=== PATIENT | male | born 1965 | race Caucasian/White ===

== ENCOUNTER 2017-06-01 13:23 | Emergency (ER) | payer BC ==
[2017-06-01 15:07] LABS: ABSOLUTE BASOPHILS # (AUTO) 0.1 10^3/uL (0.0-0.2); ABSOLUTE EOSINOPHILS # (AUTO) 0.1 10^3/uL (0.0-0.6); ABSOLUTE LYMPHOCYTES (AUTO) 1.3 10^3/uL (0.5-4.7); ABSOLUTE MONOCYTES (AUTO) 0.5 10^3/uL (0.1-1.4); ABSOLUTE NEUT (AUTO) 2.8 10^3/uL (1.7-8.2); BASOPHILS % (AUTO) 1.1 % (0-2); EOSINOPHILS % (AUTO) 2.4 % (0-6); HEMATOCRIT 43.3 % (37.9-51.0); HEMOGLOBIN 15.5 g/dL (13.5-17.0); MEAN CORPUSCULAR HEMOGLOBIN 32.9 pg (27.0-33.4); MEAN CORPUSCULAR HGB CONC 35.8 g/dL (32.0-36.0); MEAN CORPUSCULAR VOLUME 92 fl (80-97); MONOCYTES % (AUTO) 9.6 % (3-13); PLATELET COUNT 262 10^3/uL (150-450); RED BLOOD COUNT 4.71 10^6/uL (4.35-5.55); RED CELL DISTRIBUTION WIDTH 13.1 % (11.5-14.0); SEGMENTED NEUTROPHILS % (AUTO) 59.9 % (42-78); TOTAL CELLS COUNTED % (AUTO) 100 %; WHITE BLOOD COUNT 4.7 10^3/uL (4.0-10.5)
--- NOTE | 2017-06-01 15:11 | RADIOLOGY REPORT (SQ) ---
EXAM DESCRIPTION: CHEST 2 VIEWS COMPLETED DATE/TIME: 06/01/2017 2:57 pm REASON FOR STUDY: SOB COMPARISON: None. EXAM PARAMETERS: NUMBER OF VIEWS: two views TECHNIQUE: Digital Frontal and Lateral radiographic views of the chest acquired. RADIATION DOSE: NA LIMITATIONS: none FINDINGS: LUNGS AND PLEURA: Linear scarring or atelectasis in the left lower lobe. No effusions. MEDIASTINUM AND HILAR STRUCTURES: No masses or contour abnormalities. HEART AND VASCULAR STRUCTURES: Heart normal size. No evidence for failure. BONES: No acute findings. HARDWARE: None in the chest. OTHER: No other significant finding. IMPRESSION: Left lower lobe atelectasis. TECHNICAL DOCUMENTATION: JOB ID: [id number] [employer]- All Rights Reserved Reading location - IP/workstation name: [email or web address]
[2017-06-01] MEDS ORDERED: IPRATROPIUM/ALBUTEROL 0.5-2.5 MG/3 ML AMPUL NEB ONE (16:13)
[2017-06-01] MEDS ORDERED: METHYLPREDNISOLONE INJ 125 MG/2 ML SDV IV ONE (16:13)
--- NOTE | 2017-06-01 16:15 | ER Document Report ---
ED Respiratory Problem - General Chief Complaint: Breathing Difficulty Stated Complaint: DIFFICULTY BREATHING Time Seen by Provider: 06/01/17 13:59 Mode of Arrival: Ambulatory Information source: Patient Notes: Patient presents with a 5 day history of cough with difficulty breathing. Patient states he has had a cough since January of last year but it seems to have worsened over the past 5 days. Patient does work on [id number] and frequently flies out of state. Patient reports occasionally productive cough with bilateral rib pain. Patient denies any nausea vomiting or fever. TRAVEL OUTSIDE OF THE [place] IN LAST 30 DAYS: No - HPI Patient complains to provider of: Cough, Short of breath. No: Chest pain Onset: Other - 5 days Duration: Worse/persistent Pain Level: 1 Context: Recent long distance trvl. denies: Hx asthma, Smoker Cough: Nonproductive Associated symptoms: Cough, Short of breath, Wheezing. denies: Bloody cough, Fever, Headache Similar symptoms previously: No Recently seen / treated by doctor: No - Related Data Allergies/Adverse Reactions: acetaminophen [From Tylenol] Allergy (Verified 06/01/17 13:31) Sulfa (Sulfonamide Antibiotics) Allergy (Verified 06/01/17 13:31) Home Medications: Losartan Past Medical History - General Information source: Patient - Social History Smoking Status: Never Smoker Chew tobacco use (# tins/day): No Frequency of alcohol use: Occasional Drug Abuse: None Occupation: [employer] Family History: Reviewed & Not Pertinent Patient has suicidal ideation: No Patient has homicidal ideation: No - Past Medical History Cardiac Medical History: Reports: Hx Hypertension Renal/ Medical History: Denies: Hx Peritoneal Dialysis Musculoskeltal Medical History: Reports Hx Arthritis Past Surgical History: Reports: Hx Orthopedic Surgery - R total knee Review of Systems - Review of Systems Constitutional: No symptoms reported. denies: Fever EENT: No symptoms reported Cardiovascular: Chest pain - Lower rib tenderness with coughing Respiratory: Cough, Short of breath, Wheezing Gastrointestinal: Abdominal pain - Upper abdominal pain worse with coughing. denies: Vomiting Genitourinary: No symptoms reported Male Genitourinary: No symptoms reported Musculoskeletal: No symptoms reported. denies: Back pain Skin: No symptoms reported Hematologic/Lymphatic: No symptoms reported Neurological/Psychological: No symptoms reported Physical Exam - Vital signs Vitals: Temp Pulse Resp BP Pulse Ox 98.2 F 108 H 22 H 170/97 H 95 04/19/18 13:30 06/01/17 13:30 06/01/17 13:30 06/01/17 13:30 06/01/17 13:30 - General General appearance: Appears well, Alert In distress: None - HEENT Head: Normocephalic Eyes: Normal Conjunctiva: Normal Nasal: Normal Mouth/Lips: Normal Mucous membranes: Normal - Respiratory Respiratory status: No respiratory distress Chest status: Pain with cough Breath sounds: Nonproductive cough, Wheezing Chest palpation: Normal. No: Tender - Cardiovascular Rhythm: Regular Heart sounds: S1 appreciated, S2 appreciated Murmur: No - Abdominal Inspection: Morbidly Obese Distension: No distension Bowel sounds: Normal Tenderness: Nontender Organomegaly: No organomegaly - Back Back: Normal, Nontender. No: CVA tenderness - Extremities General upper extremity: Normal inspection, Normal ROM General lower extremity: Normal inspection, Normal ROM - Neurological Neuro grossly intact: Yes Cognition: Normal Wesley Coma Scale Eye Opening: Spontaneous Clarence Coma Scale Verbal: Oriented Clarence Coma Scale Motor: Obeys Commands Wesley Coma Scale Total: 15 - Psychological Associated symptoms: Normal affect, Normal mood - Skin Skin Temperature: Warm Skin Moisture: Dry Skin Color: Normal Course - Re-evaluation Re-evalutation: 06/01/17 17:08 Patient continues with diffuse bilateral wheezing, additional nebulizer treatment ordered. 06/01/17 19:[address] Cutler regarding patient presentation, advises consulted with hospitalist for admission. Attempted to page Dr. Hernández, phone rings unanswered. 06/01/17 19:[address] Hernández who agrees to come and evaluate patient for admission. 06/01/17 20:01 Discuss results and findings with patient discussed results of patient's CTA with patient. Patient advised that he should be admitted at this time and that a hospitalist will come by to evaluate him. Patient states that he does not want to be admitted because he has a lot of obligations out of state but that he does not plan on leaving AMA at this time. Patient would like to speak with the hospitalist first to help make this decision. - Vital Signs Vital signs: Temp Pulse Resp BP Pulse Ox 98.2 F 108 H 15 141/83 H 97 06/01/17 13:30 06/01/17 13:30 06/01/17 17:01 06/01/17 17:01 06/01/17 17:01 - Laboratory Result Diagrams: 06/01/17 14:35 06/01/17 16:26 Laboratory results interpreted by me: 06/01/17 16:26 ALT 114 H Labs- Entire Visit 06/01/17 06/01/17 06/01/17 14:35 14:35 14:35 WBC 4.7 RBC 4.71 Hgb 15.5 Hct 43.3 MCV 92 MCH 32.9 MCHC 35.8 RDW 13.1 Plt Count 262 Seg Neutrophils % 59.9 Lymphocytes % 27.0 Monocytes % 9.6 Eosinophils % 2.4 Basophils % 1.1 Absolute Neutrophils 2.8 Absolute Lymphocytes 1.3 Absolute Monocytes 0.5 Absolute Eosinophils 0.1 Absolute Basophils 0.1 VBG pH VBG pCO2 VBG HCO3 VBG Base Excess Sodium Cancelled Potassium Cancelled Chloride Cancelled Carbon Dioxide Cancelled Anion Gap Cancelled BUN Cancelled Creatinine Cancelled Est GFR ( Amer) Cancelled Est GFR (Non-Af Amer) Cancelled Glucose Cancelled Calcium Cancelled Magnesium Cancelled Total Bilirubin Cancelled Direct Bilirubin Cancelled Neonat Total Bilirubin Cancelled Neonat Direct Bilirubin Cancelled Neonat Indirect Bili Cancelled AST Cancelled ALT Cancelled Alkaline Phosphatase Cancelled Troponin I Cancelled NT-Pro-B Natriuret Pep Cancelled Total Protein Cancelled Albumin Cancelled 06/01/17 06/01/17 06/01/17 15:36 15:36 16:26 WBC RBC Hgb Hct MCV MCH MCHC RDW Plt Count Seg Neutrophils % Lymphocytes % Monocytes % Eosinophils % Basophils % Absolute Neutrophils Absolute Lymphocytes Absolute Monocytes Absolute Eosinophils Absolute Basophils VBG pH VBG pCO2 VBG HCO3 VBG Base Excess Sodium Cancelled Potassium Cancelled Chloride Cancelled Carbon Dioxide Cancelled Anion Gap Cancelled BUN Cancelled Creatinine Cancelled Est GFR ( Amer) Cancelled Est GFR (Non-Af Amer) Cancelled Glucose Cancelled Calcium Cancelled Magnesium Cancelled Total Bilirubin Cancelled Direct Bilirubin Cancelled Neonat Total Bilirubin Cancelled Neonat Direct Bilirubin Cancelled Neonat Indirect Bili Cancelled AST Cancelled ALT Cancelled Alkaline Phosphatase Cancelled Troponin I Cancelled < 0.012 NT-Pro-B Natriuret Pep Cancelled 35 Total Protein Cancelled Albumin Cancelled 06/01/17 06/01/17 16:26 18:04 WBC RBC Hgb Hct MCV MCH MCHC RDW Plt Count Seg Neutrophils % Lymphocytes % Monocytes % Eosinophils % Basophils % Absolute Neutrophils Absolute Lymphocytes Absolute Monocytes Absolute Eosinophils Absolute Basophils VBG pH 7.38 VBG pCO2 50.0 VBG HCO3 28.8 VBG Base Excess 2.6 Sodium 141.6 Potassium 3.9 Chloride 103 Carbon Dioxide 29 Anion Gap 10 BUN 17 Creatinine 0.94 Est GFR ( Amer) > 60 Est GFR (Non-Af Amer) > 60 Glucose 107 Calcium 9.4 Magnesium 2.1 Total Bilirubin 0.5 Direct Bilirubin 0.3 Neonat Total Bilirubin Not Reportable Neonat Direct Bilirubin Not Reportable Neonat Indirect Bili Not Reportable AST 59 ALT 114 H Alkaline Phosphatase 46 Troponin I NT-Pro-B Natriuret Pep Total Protein 6.8 Albumin 4.3 - Diagnostic Test Radiology reviewed: Reports reviewed
--- NOTE | 2017-06-01 16:37 | ER Document Report ---
ED Medical Screen (RME) - General TRAVEL OUTSIDE OF THE [place] IN LAST 30 DAYS: No - Related Data Home Medications: Losartan <PASQUALE GREENBERG - Last Filed: 06/01/17 16:40> <DIONNA ALCANTAR - Last Filed: 06/01/17 20:44> - General Chief Complaint: Breathing Difficulty Stated Complaint: DIFFICULTY BREATHING Time Seen by Provider: 06/01/17 13:59 Notes: Patient is a 52-year-old male who presents to the emergency department today with complaints of a cough with associated shortness of breath. Patient states when lying down flat he "feels like he is drowning". Patient denies a history of MN or CVA. I have greeted and performed a rapid initial assessment of this patient. A comprehensive ED assessment and evaluation of the patient, analysis of test results, and completion of the medical decision making process will be conducted by additional ED providers. Review of systems: Constitutional: No symptoms reported EENT: No symptoms reported Cardiovascular: No symptoms reported Respiratory: Shortness of breath, dry non-productive cough Gastrointestinal: No symptoms reported Genitourinary: No symptoms reported Musculoskeletal: No symptoms reported Skin: No symptoms reported Hematologic/Lymphatic: No symptoms reported Neurological/Psychological: No symptoms reported Yes All other systems reviewed and negative Physical Exam: General: Alert, appears well. HEENT: Normocephalic. Atraumatic. PERRLA. Extraocular movements intact. Oropharynx clear. Neck: Supple. Respiratory: Wheezing in bilateral lower lobes. Abdominal: Normal Inspection. No distension. Extremities: Moves all four extremities. Neurological: Normal cognition. AAOx4. Normal speech. Psychological: Normal affect. Normal Mood. Skin: Warm. Dry. Normal color. (PASQUALE GREENBERG) - Related Data Allergies/Adverse Reactions: acetaminophen [From Tylenol] Allergy (Verified 06/01/17 13:31) Sulfa (Sulfonamide Antibiotics) Allergy (Verified 06/01/17 13:31) Past Medical History - Social History Chew tobacco use (# tins/day): No Frequency of alcohol use: Occasional Drug Abuse: None - Past Medical History Cardiac Medical History: Reports: Hx Hypertension Renal/ Medical History: Denies: Hx Peritoneal Dialysis Past Surgical History: Reports: Hx Orthopedic Surgery - R total knee <PASQUALE GREENBERG - Last Filed: 06/01/17 16:40> - Vital signs Vitals: Temp Pulse Resp BP Pulse Ox 98.2 F 108 H 22 H 170/97 H 95 06/01/17 13:30 06/01/17 13:30 06/01/17 13:30 06/01/17 13:30 06/01/17 13:30 Course - Laboratory Result Diagrams: 06/01/17 14:35 06/01/17 14:35 <PASQUALE GREENBERG - Last Filed: 06/01/17 16:40> - Laboratory Result Diagrams: 06/01/17 14:35 06/01/17 16:26 <DIONNA ALCANTAR - Last Filed: 06/01/17 20:44> - Vital Signs Vital signs: Temp Pulse Resp BP Pulse Ox 98.2 F 108 H 15 141/83 H 97 06/01/17 13:30 06/01/17 13:30 06/01/17 17:01 06/01/17 17:01 06/01/17 17:01 - Laboratory Laboratory results interpreted by me: 06/01/17 16:26 ALT 114 H Doctor's Discharge <PASQUALE GREENBERG - Last Filed: 06/01/17 16:40> <DIONNA ALCANTAR - Last Filed: 06/01/17 20:44> - Discharge Clinical Impression: Pulmonary embolism Qualifiers: Pulmonary embolism type: other Chronicity: acute Acute cor pulmonale presence: without acute cor pulmonale Qualified Code(s): I26.99 - Other pulmonary embolism without acute cor pulmonale Condition: Stable Disposition: HOME, SELF-CARE Additional Instructions: Take medications as directed Monitor symptoms closely Recheck with your PCM in 3-5 days Recheck with your wedger in the next week as well Return to the ED with any worsening symptoms and/or development of fever, headache, chest pain, palpitations, syncope, shortness of breath, trouble breathing, abdominal pain, n/v/d, blood in stool/urine, loss of control of bowel /bladder, urinary retention, muscle weakness/paralysis, numbness/tingling, or other worsening symptoms that are concerning to you. Prescriptions: Apixaban [Eliquis] 5 - 10 mg PO Q12 #50 tablet Forms: Elevated Blood Pressure Referrals: AMARI SMITH MD [ACTIVE STAFF] - Follow up as needed
[2017-06-01 16:48] LABS: ALANINE AMINOTRANSFERASE 114 U/L (21-72); ALBUMIN 4.3 g/dL (3.5-5.0); ALKALINE PHOSPHATASE 46 U/L (38-126); ANION GAP 10 (5-19); ASPARTATE AMINO TRANSFERASE 59 U/L (17-59); BILIRUBIN,DIRECT 0.3 mg/dL (0.0-0.4); BILIRUBIN,TOTAL 0.5 mg/dL (0.2-1.3); BLOOD UREA NITROGEN 17 mg/dL (7-20); CALCIUM 9.4 mg/dL (8.4-10.2); CARBON DIOXIDE 29 mmol/L (22-30); CHLORIDE 103 mmol/L (98-107); GLUCOSE 107 mg/dL (75-110); POTASSIUM 3.9 mmol/L (3.6-5.0); SODIUM 141.6 mmol/L (137-145); TOTAL PROTEIN 6.8 g/dL (6.3-8.2)
[2017-06-01 17:00] LABS: NT PRO BNP 35 pg/mL (5-900); TROPONIN I < 0.012 ng/mL
[2017-06-01] MEDS ORDERED: ALBUTEROL SULFATE 0.083% NEB 2.5 MG/3 ML AMPUL NEB ONE ×2 (17:08→18:01)
[2017-06-01 18:27] LABS: VENOUS BLOOD BASE EXCESS 2.6 mmol/L; VENOUS BLOOD HCO3 28.8 mmol/L (20-32); VENOUS BLOOD PH 7.38 (7.30-7.42)
--- NOTE | 2017-06-01 19:08 | RADIOLOGY REPORT (SQ) ---
EXAM DESCRIPTION: CTA CHEST COMPLETED DATE/TIME: 06/01/2017 6:41 pm REASON FOR STUDY: dyspnea COMPARISON: Chest x-ray dated 06/01/2017 TECHNIQUE: CT scan of the chest performed using helical scanning technique with dynamic intravenous contrast injection. Images reviewed with lung, soft tissue and bone windows. Reconstructed coronal and sagittal MPR images reviewed. Additional 3 dimensional post-processing performed to develop Maximal Intensity Projection images (NH P). All images stored on PACS. All CT scanners at this facility use dose modulation, iterative reconstruction, and/or weight based d osing when appropriate to reduce radiation dose to as low as reasonably achievable (ALARA). [facility]: Dose Right [facility]: CareDose [facility]: Dose Right [facility]: Teradose 4D [facility]: A Curated World CONTRAST TYPE AND DOSE: contrast/concentration: Isovue 370.00 mg/ml; Total Contrast Delivered: 86.0 ml; Total Saline Delivered: 90.0 ml Contrast bolus optimized for the pulmonary arteries. Not diagnostic for the aorta. RENAL FUNCTION: Creatinine 0.94 RADIATION DOSE: CT Rad equipment meets quality standard of care and radiation dose reduction techniq ues were employed. CTDIvol: 47.2 - 75.0 mGy. DLP: 1849 mGy-cm. . LIMITATIONS: None. FINDINGS: LUNGS AND PLEURA: There is minimal patchy airspace densities in the left perihilar and les s pronounced changes in the right perihilar region which may represent a developing pneumonic infiltr ate. Linear densities are identified in the lung bases most consistent with atelectatic changes alth ough I cannot exclude linear scarring. No pleural effusions are identified. No pneumothorax is seen . AORTA AND GREAT VESSELS: No aneurysm. Contrast bolus not optimized for the aorta. HEART: No pericardial effusion. No significant coronary artery calcifications. PULMONARY ARTERIES: Intraluminal thrombus is identified in 1 of upper lobe pulmonary arteries on the right. No other evidence for pulmonary embolic disease is seen HILAR AND MEDIASTINAL STRUCTURES: No identified masses or abnormal nodes. HARDWARE: None in the chest. UPPER ABDOMEN: No significant findings. Limited exam. THYROID AND OTHER SOFT TISSUES: No masses. No adenopathy. BONES: No acute or significant finding. 3D MIPS: Confirm above findings. OTHER: No other significant finding. IMPRESSION: Intraluminal thrombus is identified in 1 of the upper lobe pulmonary arteries on the rig ht. No other evidence for pulmonary embolic disease is seen. Minimal patchy airspace densities in t he perihilar regions left greater than right which could represent a developing pneumonic infiltrate. Linear densities in the lung bases most consistent with atelectatic changes. Other findings as not ed above COMMENT: Quality ID # [id number]: Final reports with documentation of one or more dose reduction techniques (e.g., Automated exposure control, adjustment of the mA and/or kV according to patient size, use of iterative reconstruction technique) TECHNICAL DOCUMENTATION: JOB ID: [id number] [employer]- All Rights Reserved Reading location - IP/workstation name: [email or web address]
[2017-06-01] MEDS ORDERED: PROMETHAZINE HCL INJ 25 MG/1 ML VIAL IV PRN (20:05)
[2017-06-01] MEDS ORDERED: ACETAMINOPHEN 325 MG TABLET PO PRN (20:05)
[2017-06-01] MEDS ORDERED: ALBUTEROL SULFATE 0.083% NEB 2.5 MG/3 ML AMPUL NEB PRN (20:05)
[2017-06-01] MEDS ORDERED: APIXABAN 5 MG TABLET PO ONE (20:35)
[2017-06-01 20:53] LABS: INTERNATIONAL RATION (INR) 0.88; PROTHROMBIN TIME 12.4 SEC (11.4-15.4)
[2017-06-01 21:53] VITALS: BP 154/96
[2017-06-01] MEDS ORDERED: ENOXAPARIN SODIUM INJ 150 MG/1 ML DISP.SYRIN SUBCUT SCH (22:00)
--- NOTE | 2017-06-01 22:58 | EKG REPORT ---
SEVERITY:- OTHERWISE NORMAL ECG - SINUS RHYTHM BORDERLINE LEFT AXIS DEVIATION : Confirmed by: Natalya Rios 01-Jun-2017 22:57:10
== END 2017-06-01 21:53 | disposition home or self-care (01) ==
LOC: ER 13:23 → UNDOADMIN 20:13 → EH 20:13 → ER 21:53
DX: I26.99 Other pulmonary embolism without acute cor pulmonale (principal); R06.00 Dyspnea, unspecified; I10 Essential (primary) hypertension; Z79.02 Long term (current) use of antithrombotics/antiplatelets; Z88.6 Allergy status to analgesic agent; Z88.2 Allergy status to sulfonamides
CPT/HCPCS: 93005; 94640 ×2; 99285; 96374; 36415; 83735; 85025; 85610; 85730; 80053; 84484; 82803; 83880; 71046; 71275; 93010; J2930; J7620